=== PATIENT | male | born 1970 | race Caucasian/White ===

== ENCOUNTER → 2020-09-24 | Emergency (ER) | payer SELFPAY ==
[~2020-09-24] VITALS: Ht 177.8 cm; Wt 109.3 kg
[~2020-09-24] MED LIST: ADDERALL 20 MG20 MG PO; GLUCOPHAGE500 MG PO; LITHIUM CARBON150 MG PO; NEURONTIN600 MG PO; NORTRIPTYLINE H50 MG PO
== END ==
LOC: ED 15:40
DX: E11.65 Type 2 diabetes mellitus with hyperglycemia (principal); R10.9 Unspecified abdominal pain; F31.9 Bipolar disorder, unspecified; F41.9 Anxiety disorder, unspecified; Z87.891 Personal history of nicotine dependence; Z79.899 Other long term (current) drug therapy
CPT/HCPCS: 80053; 81001; 83690; 85025; 99284; J7030

== ENCOUNTER 2020-10-12 15:10 | Emergency (ER) | payer OTHER ==
[~2020-10-12] VITALS: Ht 177.8 cm; Wt 109.3 kg
--- OUTSIDE RECORDS SUMMARY | 2020-10-12 15:12 | XMS ---
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 Jeanne has no Care Guidelines for this patient. Vaughn V[facility] (12 MO.) [facility] NOTE: Visits indicate total known visits. ED/[facility] VISIT TRACKING (12 MO.) 10/12/2020 15:11 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
[2020-10-12] MEDS ORDERED: LANTUS100 UNITS/ SUB-Q (15:32)
[2020-10-12] MEDS ORDERED: PRINIVIL20 MG PO (15:32)
[2020-10-12] MEDS ORDERED: NORVASC5 MG PO (15:33)
== END 2020-10-12 18:58 | disposition home or self-care (01) ==
LOC: ED 15:10
DX: R10.9 Unspecified abdominal pain (principal); E11.9 Type 2 diabetes mellitus without complications; I10 Essential (primary) hypertension; Z87.891 Personal history of nicotine dependence; Z79.4 Long term (current) use of insulin; Z79.899 Other long term (current) drug therapy
CPT/HCPCS: 74177; 80053; 81001; 85025; 99284-25; J1885; J7030; Q9967

== ENCOUNTER 2021-06-24 08:29 | Emergency (ER) | payer OTHER ==
[~2021-06-24] VITALS: Ht 177.8 cm; Wt 106.6 kg
[~2021-06-24 08:29] MED LIST changes: +BASAGLAR K100 UNIT/1 SQ; +LAMICTAL100 MG PO; +LANTUS100 UNITS/ SUB-Q; +NORVASC5 MG PO; +PRINIVIL20 MG PO; +ULTRAM50 MG PO
--- OUTSIDE RECORDS SUMMARY | 2021-06-24 08:32 | XMS ---
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 Jeanne has no Care Guidelines for this patient. Vaughn VISIT COUNT (12 MO.) 3 REGLA Mendez TOTAL 3 NOTE: Visits indicate total known visits. 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
[2021-06-24] MEDS ORDERED: ATIVAN1 MG PO (12:29)
[2021-06-25] MEDS ORDERED: LORAZEPAM1 MG PO (20:38)
[2021-06-25] MEDS ORDERED: ATORVASTATIN CA20 MG PO (20:46)
[2021-06-25] MEDS ORDERED: LAMOTRIGINE200 MG PO (20:46)
[2021-06-25] MEDS ORDERED: DIVALPROEX SOD500 M1 PO (20:47)
[2021-06-25] MEDS ORDERED: MIRTAZAPINE15 MG PO (20:48)
[2021-06-25] MEDS ORDERED: TRULICITY0.75 MG/0. SQ (20:49)
[2021-06-25] MEDS ORDERED: GABAPENTIN600 MG PO ×2 (20:50)
[2021-06-25] MEDS ORDERED: METFORMIN HCL1000 MG PO (20:50)
== END 2021-06-24 12:46 | disposition home or self-care (01) ==
LOC: ED 08:29
DX: G25.2 Other specified forms of tremor (principal); G89.29 Other chronic pain; R10.9 Unspecified abdominal pain; E11.9 Type 2 diabetes mellitus without complications; I10 Essential (primary) hypertension; Z87.891 Personal history of nicotine dependence; Z79.4 Long term (current) use of insulin; Z79.899 Other long term (current) drug therapy
CPT/HCPCS: 80053; 80164; 83735; 85025; 96374; 96375; 96376; 99284-25; J1885; J2060

== ENCOUNTER 2021-06-25 11:03 | Emergency (ER) | payer OTHER ==
[~2021-06-25] VITALS: Ht 177.8 cm; Wt 106.6 kg
[~2021-06-25 11:03] MED LIST changes: +ATIVAN1 MG PO
--- OUTSIDE RECORDS SUMMARY | 2021-06-25 11:06 | XMS ---
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 - [facility] ANDRIA KAPLAN [facility] 06/25/2021-Current PHONE: [phone] Jeanne has no Care Guidelines for this patient. Care History Medical/Surgical 06/25/2021 [facility] Patient is currently established with [facility]. If patient is seen in the ED during business hours. Please contact CHWs at [facility]. - Care Recommendation: If this patient has had 5 or more Emergency Department visits in the last 12 months.\T\nbsp; Patient will require education on the scope and purpose of the ED as an acute care provider not a Primary Care Provider and should not be utilized for chronic conditions.\T\nbsp; These are guidelines and the provider should exercise clinical judgment when providing care. E.D. VISIT COUNT (12 MO.) 4 [facility] TOTAL 4 NOTE: Visits indicate total known visits. 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
[2021-06-25] MEDS ORDERED: LORAZEPAM1 MG PO (20:38)
[2021-06-25] MEDS ORDERED: LAMOTRIGINE200 MG PO (20:46)
[2021-06-25] MEDS ORDERED: ATORVASTATIN CA20 MG PO (20:46)
[2021-06-25] MEDS ORDERED: DIVALPROEX SOD500 M1 PO (20:47)
[2021-06-25] MEDS ORDERED: MIRTAZAPINE15 MG PO (20:48)
[2021-06-25] MEDS ORDERED: TRULICITY0.75 MG/0. SQ (20:49)
[2021-06-25] MEDS ORDERED: GABAPENTIN600 MG PO ×2 (20:50)
[2021-06-25] MEDS ORDERED: METFORMIN HCL1000 MG PO (20:50)
--- NOTE | 2021-06-29 16:39 | EKG ---
[facility] [address] [facility] [place], [place] [address] Signed Normal sinus rhythm Normal ECG No previous ECGs available Confirmed by ALVARO SALTER MD ([id number]) on 06/29/2021 4:39:14 PM Electronically Signed By: ALVARO SALTER MD 06/29/21 1639 PATIENT NAME: JULES CORONA Electrocardiogram DATE OF : 74 PHYSICIAN: ALVARO SALTER MD REPORT #: [id number] REPORT IS CONFIDENTIAL AND NOT TO BE RELEASED WITHOUT AUTHORIZATION
== END 2021-06-26 12:57 | disposition short-term general hospital (02) ==
LOC: ED 11:03
DX: F41.9 Anxiety disorder, unspecified (principal); R45.851 Suicidal ideations; R25.1 Tremor, unspecified; Z20.822 Contact with and (suspected) exposure to COVID-19; E11.9 Type 2 diabetes mellitus without complications; I10 Essential (primary) hypertension; Z87.891 Personal history of nicotine dependence; Z79.899 Other long term (current) drug therapy; Z79.4 Long term (current) use of insulin
CPT/HCPCS: 80053; 80164; 81001; 82140; 84443; 85025; 93005; 93010; 99285-25; A9270-GY; C9803; G0480; U0003

== ENCOUNTER 2021-11-15 12:09 | Emergency (ER) | payer OTHER ==
[~2021-11-15] VITALS: Ht 175.3 cm; Wt 108.0 kg
[~2021-11-15 12:09] MED LIST changes: +ACETAMINOPHEN500 MG PO; +AMLODIPINE BESYL5 MG PO; +ATORVASTATIN CA20 MG PO; +DICLOFENAC SODI75 MG PO; +DIVALPROEX SOD500 M1 PO; +FLUTICASONE PRO16 GM NAS; +GABAPENTIN600 MG PO; +GABAPENTIN800 MG PO; +HYDROCODON-ACE1 EA10 PO; +IBUPROFEN600 MG PO; +LAMOTRIGINE200 MG PO; +LORAZEPAM1 MG PO; +METFORMIN HCL1000 MG PO; +MIRTAZAPINE15 MG PO; +OLANZAPINE5 MG PO; +PROPRANOLOL HCL20 MG PO; +TRULICITY0.75 MG/0. SUB-Q
--- OUTSIDE RECORDS SUMMARY | 2021-11-15 12:12 | XMS ---
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 Care History Medical/Surgical 09/07/2021 [facility] Follow up visit with Dr. Hobbs on 09/14/2021 06/25/2021 [facility] Patient is currently established with [facility]. If patient is seen in the ED during business hours. Please contact CHWs at [facility]. - Care Recommendation: If this patient [...] providing care. E.D. VISIT COUNT (12 MO.) [address] [facility] TOTAL 3 NOTE: Visits indicate total known visits. 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 06/24/2021 08:29 [facility] [place] TYPE: Emergency COMPLAINT: - HEAD ARMS SHAKING DIAGNOSES: - Other alf (current) drug therapy - Type 2 diabetes mellitus without complications - Essential (primary) hypertension - 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 - Unspecified abdominal pain - Other specified forms of tremor - Personal history of nicotine dependence - Other chronic pain INPATIENT VISIT TRACKING (12 MO.) 09/04/2021 12:03 [facility] [place] TYPE: Observation COMPLAINT: - INCARCERATED PERIUMBELICAL HERNIA DIAGNOSES: - Other and unspecified ventral hernia with obstruction, without gangrene - Type 2 diabetes mellitus without complications - Obesity, unspecified - Personal history of nicotine dependence - Essential (primary) hypertension - Gastro-esophageal reflux disease without esophagitis [email or web address]
== END 2021-11-15 16:24 | disposition home or self-care (01) ==
LOC: ED 12:09
DX: J20.9 Acute bronchitis, unspecified (principal); Z20.822 Contact with and (suspected) exposure to COVID-19; I10 Essential (primary) hypertension; Z79.899 Other long term (current) drug therapy; Z79.84 Long term (current) use of oral hypoglycemic drugs; Z87.891 Personal history of nicotine dependence
CPT/HCPCS: 71045; 99285-25; C9803; U0003

== ENCOUNTER 2022-08-08 18:51 | Emergency (ER) | payer OTHER ==
[~2022-08-08] VITALS: Ht 175.3 cm; Wt 100.2 kg
--- OUTSIDE RECORDS SUMMARY | 2022-08-08 18:54 | XMS ---
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 Care History Medical/Surgical 11/17/2021 [facility] Advising patient to follow up with PCP if needed. Next appt on 12/15/2021. 09/07/2021 [facility] Follow up visit with Dr. Hobbs on 09/14/2021 06/25/2021 [facility] Patient is currently established with [facility]. If patient is seen in the ED during business hours. Please contact CHWs at [facility]. - Care Recommendation: If this patient has [...] providing care. E.D. VISIT COUNT (12 MO.) 2 [facility] TOTAL 2 NOTE: Visits indicate total known visits. ED/UCC VISIT TRACKING (12 MO.) 08/08/2022 18:51 REGLA Parm[facility] [place] TYPE: Emergency COMPLAINT: - CP 11/15/2021 12:10 [facility] Parm[facility] [place] TYPE: Emergency COMPLAINT: - SORE THROAT,SOB DIAGNOSES: - COUGH, UNSPECIFIED - residential (current) use of oral hypoglycemic drugs - Cough, unspecified - Acute bronchitis, unspecified - Other usp (current) drug therapy - Essential (primary) hypertension - Contact with and (suspected) exposure to COVID-19 - Personal history of nicotine dependence INPATIENT VISIT TRACKING (12 MO.) 09/04/2021 12:03 [facility] [place] TYPE: Observation COMPLAINT: - INCARCERATED PERIUMBELICAL HERNIA DIAGNOSES: - Essential (primary) hypertension - Obesity, unspecified - Other and unspecified ventral hernia with obstruction, without gangrene - Gastro-esophageal reflux disease without esophagitis - Personal history of nicotine dependence - Type 2 diabetes mellitus without complications [email or web address]
[2022-08-08] MEDS ORDERED: HYDROCODON-ACE1 EA10 PO (20:17)
--- NOTE | 2022-08-08 21:11 | EKG ---
[facility] [address] [facility] [facility] [place], [place] [address] Signed Sinus rhythm with short MO Otherwise normal ECG When compared with ECG of 25-JUN-2021 12:13, MO interval has decreased Confirmed by ALVARO SALTER MD ([id number]) on 08/08/2022 9:11:35 PM Electronically Signed By: ALVARO SALTER MD 08/08/222110 PATIENT NAME: JULES CORONA MALU Electrocardiogram DATE OF : 74 PHYSICIAN: ALVARO SALTER MD REPORT #: [id number] REPORT IS CONFIDENTIAL AND NOT TO BE RELEASED WITHOUT AUTHORIZATION
== END 2022-08-08 20:29 | disposition home or self-care (01) ==
LOC: ED 18:51
DX: R07.89 Other chest pain (principal); E11.9 Type 2 diabetes mellitus without complications; I10 Essential (primary) hypertension; Z87.891 Personal history of nicotine dependence; Z79.899 Other long term (current) drug therapy; Z79.84 Long term (current) use of oral hypoglycemic drugs
CPT/HCPCS: 36415; 71045; 80053; 83735; 84484; 85025; 93005; 93010; 96374; 99285-25; A9270; J1885

== ENCOUNTER 2022-09-07 10:54 | Day surgery (SDC) | payer OTHER ==
[~2022-09-07] VITALS: Ht 177.8 cm; Wt 100.0 kg
[~2022-09-07 10:54] MED LIST changes: +ONDANSETRON ODT8 MG PO
[2022-09-07] MEDS ORDERED: METHYLPHENIDATE54 MG PO (11:25)
--- NOTE | 2022-09-07 14:15 | NUR ---
09/07/22 1415 Siomara Soni 1408 PATIENT ARRIVES TO PACU AWAKE BUT DROWSY.DENIES PAIN OR NAUSEA. RESP EVEN AND UNLABORED, NC TURNED OFF ON ARRIVAL TO PACU, ROOM AIR SATS >93%. 1415 PATIENT SITTING UP DRINKING JUICE.
--- NOTE | 2022-09-08 10:58 | OR ---
[facility] [address] [place], [place] [address] Signed DATE OF OPERATION: 09/07/2022 SURGEON: Nathalie Almendarez MD PREOPERATIVE DIAGNOSIS: History of multiple polyps in 2020, including 3 serrated adenomas. POSTOPERATIVE DIAGNOSIS: Polyps x2, sigmoid and rectosigmoid. PROCEDURE: Total colonoscopy to cecum with cold morcellation polypectomy x2. ANESTHESIA: Intravenous sedation, propofol 100 mcg, Versed 4 mg. INDICATION: A 51-year-old white man, who is a patient of Dr. Hobbs and underwent colonoscopy by ma in 2020, at which time he had multiple polyps, 3 of which were serrated adenomas. He is symptom-free at this time. He is admitted to undergo surveillance colonoscopy on the short-term basis of number of polyps as well as serrated polyps in the past. He understands risk of bleeding, infection, and perforation related to colonoscopy and wished to proceed. FINDINGS: The prep was adequate. Complete colonoscopy was undertaken to the cecum. He had 2 small polyps, both excised with cold morcellation technique, one in the left colon, the other in the rectosigmoid. PROCEDURE IN DETAIL: The patient was brought to the endoscopy suite and placed in the lateral decubitus position, given intravenous sedation to the point of slurred speech and nystagmus. Digital rectal examination was normal. An Olympus video colonoscope was passed in the rectum and manipulated throughout the colon ultimately intubating the cecum itself. The ileocecal valve was identified as normal. Scope was withdrawn. Examination throughout showed no sign of abnormality until the left colon, where a small polyp was noted, this was excised with cold morcellation technique. Further withdrawal showed another polyp in the rectosigmoid, which was excised in a similar way. The scope was removed and the patient was taken to Electronically Signed By: NATHALIE ALMENDAREZ MD 09/08/22 1058 PATIENT NAME: JULES CORONA OPERATIVE REPORT DATE OF : 74 REPORT #: [id number] PHYSICIAN: NATHALIE ALMENDAREZ MD PCP: ANDRIA HOBBS MD REPORT IS CONFIDENTIAL AND NOT TO BE RELEASED WITHOUT AUTHORIZATION [facility] [address] [place] [id number] Signed the recovery room in good condition. CONCLUDING DIAGNOSIS: Polyps x2. PLAN: Recommend repeat colonoscopy in 3-5 years, sooner if symptoms should occur. He will return to the ongoing care of Dr. Hobbs. Nathalie Almendarez MD JM/MODL /[id number] cc: Dr. Hobbs Copies: ~ Electronically Signed By: NATHALIE ALMENDAREZ MD 09/08/22 1058 PATIENT NAME: JULES CORONA OPERATIVE REPORT DATE OF : 74 REPORT #: [id number] PHYSICIAN: NATHALIE ALMENDAREZ MD PCP: ANDRIA HOBBS MD REPORT IS CONFIDENTIAL AND NOT TO BE RELEASED WITHOUT AUTHORIZATION
--- NOTE | 2022-09-09 15:56 | PATH ---
[facility] [address] [facility] [place], [place] [address] Signed SPECIMEN(S): A ASCENDING/RIGHT COLON POLYP SPECIMEN(S): B RECTOSIGMOID POLYP SPECIMEN SOURCE: A. ASCENDING/RIGHT COLON POLYP B. RECTOSIGMOID POLYP CLINICAL HISTORY: History of polyps FINAL PATHOLOGIC DIAGNOSIS: A. Ascending / right colon polyp: - Serrated polyp / adenoma (two fragments). - Tubular adenoma (one fragment). B. Rectosigmoid polyp: - Hyperplastic polyp (two fragments). JVR:[facility]:C2NR MICROSCOPIC EXAMINATION: Histologic sections of all submitted blocks are examined by light microscopy. These findings, together with the gross examination, support the pathologic diagnosis. GROSS DESCRIPTION: Two specimens are received in two containers, labeled "Gurpreet Corona." A. The specimen, labeled " Gurpreet Corona, #1," and designated on the requisition "ascending colon polyp," is received in formalin and consists of four rodrigez soft tissue fragments that measure 0.3 to 0.4 cm in greatest dimension. The specimen is entirely submitted in cassette (A1). B. The specimen, labeled " Gurpreet Corona, #2," and designated on the requisition "rectosigmoid polyp," is received in formalin and consists of two rodrigez soft tissue fragments that measure 0.3 and 0.5 cm in greatest dimension. The specimen is entirely submitted in cassette (B1). FB (under the direct supervision of a pathologist) The Gross Description was prepared using a voice recognition system. The report was reviewed for accuracy; however, sound-alike word errors, addition and/or deletions may occur. If there is any question about this report, please contact Client Services. PERFORMING LABORATORY: The technical component was performed by [facility] [address] [place] [address], PATIENT NAME: GURPREET CORONA PATHOLOGY DATE OF : 74 REPORT #: [id number] PHYSICIAN: INCJUNE PATHOLOGY PCP: ANDRIA KAPLAN MD REPORT IS CONFIDENTIAL AND NOT TO BE RELEASED WITHOUT AUTHORIZATION [facility] [address] [place], [place] [address] [place] [address] (CLIA# [id number]). Professional interpretation was performed by [facility] Pathology - [facility], [address] [place] [address], [place] [address] (CLIA#: [id number]). Diagnostician: Jules Joyner MD Pathologist Electronically Signed 09/09/2022 Copies: ~ PATIENT NAME: GURPREET CORONA PATHOLOGY DATE OF : 74 REPORT #: [id number] PHYSICIAN: JEREMY PATHOLOGY PCP: ANDRIA KAPLAN MD REPORT IS CONFIDENTIAL AND NOT TO BE RELEASED WITHOUT AUTHORIZATION
== END 2022-09-07 14:40 | disposition home or self-care (01) ==
LOC: OPS 10:54 → DS 10:56 → OPS 12:45 → DS 14:00 → OPS 14:40
PROVIDERS: ATTEND Surgery
PROC: 0DBN8ZX Excision of Sigmoid Colon, Via Natural or Artificial Opening Endoscopic, Diagnostic (ICD-10-PCS; 2022-09-07)
PROC: 0DBK8ZX Excision of Ascending Colon, Via Natural or Artificial Opening Endoscopic, Diagnostic (ICD-10-PCS; principal; 2022-09-07 12:45)
DX: D12.2 Benign neoplasm of ascending colon (principal); K64.8 Other hemorrhoids; Z86.010 Personal history of colon polyps; Z87.19 Personal history of other diseases of the digestive system
CPT/HCPCS: 99153; G0500; J2250; J3010; J7121

== ENCOUNTER 2024-01-01 17:03 | Emergency (ER) | payer OTHER ==
[~2024-01-01] VITALS: Ht 177.8 cm; Wt 104.4 kg
[~2024-01-01 17:03] MED LIST changes: +METHYLPHENIDATE54 MG PO
[2024-01-01] MEDS ORDERED: IBUPROFEN600 MG PO (17:41)
[2024-01-01] MEDS ORDERED: METOCLOPRAMIDE HCL 10 MG/2 ML SDV IV ONE (17:45)
[2024-01-01] MEDS ORDERED: KETOROLAC TROMETHAMINE 30 MG/ML VIAL IV ONE (17:45)
[2024-01-01] MEDS ORDERED: DEXAMETHASONE SOD PHOS 10 MG/ML VIAL IV ONE (17:45)
[2024-01-01] MEDS ORDERED: SODIUM CHLORIDE 0.9% 500 ML IV ONE (17:45)
[2024-01-01 18:12] LABS: BASOPHILS 1.1 % (0-2); HEMATOCRIT 39.7 % (35.0-50.0); MCHC 35.3 g/dl (30-36); MONOCYTES 10.6 % (0-12); NEUTROPHILS 60.3 % (39-80); PLATELET COUNT 224 K/uL (140-440); RBC 4.52 M/ul (4.3-5.7); RDW 13.5 (10.5-15.0)
[2024-01-01] MEDS ORDERED: REGLAN10 MG PO (18:34)
[2024-01-01 18:48] LABS: ALBUMIN 3.9 g/dL (3.4-5.0); ALBUMIN/GLOBULIN RATIO 1.15 (1.1-2.4); ANION GAP 16.7 (7-21); BILIRUBIN, TOTAL 0.5 ng/dL (0.2-1.0); BUN/CREATININE RATIO 15.51 (6.0-28.6); CREATININE, SERUM 1.16 mg/dL (0.70-1.30); POTASSIUM 3.7 mmol/L (3.5-5.1); PROTEIN, TOTAL 7.3 g/dL (6.4-8.2)
[2024-01-01 18:51] VITALS: BP 136/89
== END 2024-01-01 18:49 | disposition home or self-care (01) ==
LOC: ED 17:03
PROVIDERS: Emergency Medicine
DX: G43.909 Migraine, unspecified, not intractable, without status migrainosus (principal); I10 Essential (primary) hypertension; E11.9 Type 2 diabetes mellitus without complications; Z87.891 Personal history of nicotine dependence; Z79.899 Other long term (current) drug therapy; Z79.84 Long term (current) use of oral hypoglycemic drugs
CPT/HCPCS: 36415; 80053; 85025; 96361; 96374; 96375; 99283-25; J1100; J1885; J2765; J7040